=== PATIENT | male | born 1975 | race Caucasian/White ===

== ENCOUNTER 2025-05-04 14:13 | Emergency (ER) | payer BC ==
[2025-05-04] MEDS ORDERED: Boostrix 0.5 ML (Tdap) VIAL (>/=7 yrs of age) ONE (16:00)
[2025-05-04] MEDS ORDERED: Lidocaine 1% PF 5 ML VIAL ONE (16:56)
== END 2025-05-04 17:44 | disposition home or self-care (01) ==
LOC: CSHERS 14:13
DX: S61.212A Laceration without foreign body of right middle finger without damage to nail, initial encounter (principal); M79.5 Residual foreign body in soft tissue; F17.210 Nicotine dependence, cigarettes, uncomplicated; F17.220 Nicotine dependence, chewing tobacco, uncomplicated; Z23 Encounter for immunization; W26.0XXA Contact with knife, initial encounter
CPT/HCPCS: 12002; 90471; 90715